=== PATIENT | female | born 1940 | race Caucasian/White ===

== ENCOUNTER 2019-06-03 20:48 | Inpatient (IN) ==
[2019-06-03 21:30] LABS: BASO# 0.03 X1000 (0.0-0.2); BASO% 0.2 % (0.0-0.8); EOS# 0.27 X1000 (0.0-0.7); EOS% 2.1 % (0.0-10.0); HEMATOCRIT 32.3 % (37.0-47.0); HEMOGLOBIN 10.4 g/dL (12.0-16.0); LYMPH# 1.32 X1000 (1.2-3.4); LYMPH% 10.4 % (20.5-51.1); MCH 29.2 PG (27-31); MCHC 32.2 g/dL (33-37); MCV 90.7 FL (81-99); MONO# 1.11 X1000 (0.11-0.59); MONO% 8.7 % (1.7-9.3); MPV 10.3 FL (7.4-10.4); NEUT% 78.6 % (42.2-75.2); PLT 264 X1000 (130-400); RBC 3.56 XMIL (4.2-5.4); RDW 14.9 % (11.5-14.5); WBC 12.73 X1000 (4.8-10.8)
[2019-06-03 22:03] LABS: ALB/GLOB RATIO 0.9; ALBUMIN 3.2 g/dL (3.5-5.0); CALCIUM 8.3 mg/dL (8.8-10.2); CREATININE 2.2 mg/dL (0.5-0.9); POTASSIUM 3.6 mmol/L (3.5-5.1); TOTAL BILIRUBIN 0.52 mg/dL (0.20-1.00); TOTAL PROTEIN 6.9 g/dL (6.3-8.3)
[2019-06-03] MEDS ORDERED: TYLENOL PO ONE (22:45)
[2019-06-03] MEDS ORDERED: TYLENOL ONE ×2 (22:51→22:54)
[2019-06-03] MEDS ORDERED: NS 1,000 ML IV ONE (22:52)
[2019-06-04 00:37] LABS: URINE SOURCE CLEAN CATCH
[2019-06-04 00:45] LABS: BILIRUBIN URINE NEGATIVE (NEGATIVE); BLOOD URINE SMALL (NEGATIVE); COLOR YELLOW; GLUCOSE URINE 300 mg/dL (NEGATIVE); KETONE URINE NEGATIVE (NEGATIVE); LEUKOCYTES URINE NEGATIVE (NEGATIVE); NITRITE URINE NEGATIVE (NEGATIVE); PH URINE 6.5; PROTEIN URINE 600 mg/dL (NEGATIVE); SP GRAVITY URINE 1.011; TURBIDITY URINE CLEAR (CLEAR); UR EPITHELIAL CELLS <10 /HPF (<10); URINE BACTERIA NEGATIVE /HPF; URINE RBC 20-40 /HPF (<10); URINE WBC <10 /HPF (<10); UROBILINOGEN URINE NORMAL (NORMAL)
[2019-06-04] MEDS ORDERED: ROCEPHIN 1 GM in NS 50 ML IV ONE (00:57)
--- NOTE | 2019-06-04 01:00 | PROVIDER DOCUMENTATION ---
This chart was entered by Shahrzad Hutson Scribe, acting as scribe for Darien Gregory DO. HPI-General Adult - General Chief Complaint: Fever Stated Complaint: POSS DEHYDRATION Time Seen by Provider: 06/03/19 22:22 Source: patient Allergies/Adverse Reactions: Patient Allergies Allergy/AdvReac Type Severity Reaction Status Date / Time amlodipine Allergy Unknown Verified 02/15/18 19:35 Iodinated Contrast Media Allergy Unknown Verified 02/15/18 19:35 [Iodinated Contrast- Oral and IV Dye] Latex, Natural Rubber Allergy Unknown Verified 02/15/18 19:35 Sulfa (Sulfonamide Allergy Unknown Verified 02/15/18 19:35 Antibiotics) sulfabenzamide Allergy Unknown Verified 02/15/18 19:35 Home Medications: Home Medication List Medication Instructions Recorded Confirmed Last Taken Type ATORVAstatin [Lipitor] 80 mg PO HS 02/15/18 02/15/18 Unknown History Allopurinol 100 mg PO DAILY 02/15/18 02/15/18 Unknown History Alprazolam 0.25 mg PO ORDERED PRN 02/15/18 02/15/18 Unknown History Anastrozole 1 mg PO DAILY 02/15/18 02/15/18 Unknown History Apixaban [Eliquis] 5 mg PO BID 02/15/18 02/15/18 Unknown History Aspirin 81 mg PO DAILY 02/15/18 02/15/18 Unknown History Carvedilol 12.5 mg PO BID 02/15/18 02/15/18 Unknown History CefDINIR [Omnicef] 300 mg PO BID 02/15/18 02/15/18 Unknown History Diltiazem C.d. [Cardizem Cd] 120 mg PO DAILY 02/15/18 02/15/18 Unknown History Furosemide 40 mg PO DAILY 02/15/18 02/15/18 Unknown History Gabapentin E.r. [Gralise] 300 mg PO TID 02/15/18 02/15/18 Unknown History Hydrocodone Bit/Acetaminophen 1 each PO Q6H PRN 02/15/18 02/15/18 Unknown History [Hydrocodon-Acetaminophen 5-325] Insulin Glargine [Lantus] 50 units SQ HS 02/15/18 02/15/18 Unknown History Insulin Lispro [Humalog] 14 units SQ TID AC 02/15/18 02/15/18 Unknown History Losartan [Cozaar] 50 mg PO DAILY 02/15/18 02/15/18 Unknown History Pantoprazole [Protonix] 40 mg PO DAILY 02/15/18 02/15/18 Unknown History Phenazopyridine HCl 200 mg PO TID 02/15/18 02/15/18 Unknown History Venlafaxine [Effexor] 75 mg PO DAILY 02/15/18 02/15/18 Unknown History Ciprofloxacin HCl [Cipro] 500 mg PO BID 7 Days #14 tablet 02/16/18 Unknown Rx - History of Present Illness -Gen Adult Nature of Presenting Problems: 79 yof c/o fever, malaise, decreased mental status, cough and nausea. pt family giving pedialyte and fluids. pt poss taken too much lasix. pt has hx of ckd, dm, chf and cva. pt has not fallen, no syncope and has slight fever. denies v/d, chills and cp. pt is visiting from [facility]. Location of Pain/Injury: reports: none Pain Radiation: reports: no radiation Timing: reports: still present Context/Activities at Onset: reports: none Review of Systems - Adult - REVIEW OF SYSTEMS - ADULT Constitutional: reports: see HPI, fever, other (malaise). denies: chills, night sweats Eyes: reports: no symptoms reported Ears, Nose, Mouth & Throat: reports: no symptoms reported Cardiovascular: reports: no symptoms reported. denies: chest pain, edema, orthopnea, syncope Respiratory: reports: see HPI, cough. denies: dyspnea on exertion, shortness of breath, wheezing Gastrointestinal: reports: see HPI, nausea. denies: diarrhea, vomiting Genitourinary: reports: no symptoms reported Musculoskeletal: reports: no symptoms reported Integumentary: reports: no symptoms reported Neurological: reports: see HPI, other (dec mental status). denies: dizziness/vertigo, slurred speech, syncope Psychiatric: reports: no symptoms reported Endocrine: reports: no symptoms reported Hematologic/Lymphatic: reports: no symptoms reported Allergic/Immunologic: reports: no symptoms reported All Other Systems: Reviewed and Negative Past History - Adult - PAST MEDICAL HISTORY-ADULT Review of Records: reports: Old Records Reviewed, Nursing Assessment Review, Medications Reviewed, Social history reviewed & non-contributory. Major Childhood Illnesses: reports: denies history Cardiovascular: reports: CAD, HTN Respiratory: reports: denies history Gastrointestinal: reports: denies history Obstetrical/Gynecological: reports: denies history Genitourinary: reports: denies history Musculoskeletal: reports: denies history Neurological: reports: CVA Endocrine/Immune: reports: Diabetes Other Conditions: reports: denies history - IMMUNIZATION STATUS Childhood Immunizations: See Nurse Assessment Flu Vaccine: See Nurse Assessment - FAMILY HISTORY Family History: reviewed, not pertinent - SOCIAL HISTORY Smoking: non-smoker Substance Use: none/never Physical Exam-General - PHYSICAL EXAM-ADULT Initial Vital Signs Reviewed: Yes - CONSTITUTIONAL General Appearance: appears well, no apparent distress, lethargic (mild), other (fever 100.7 at 2052). negative: alert, cachetic, obtunded, combative - EYES Eyes: PERRL/EOMI, pink conjunctivae - HEAD, EARS, NOSE, MOUTH & THROAT HENMT: normocephalic/atraumatic, moist mucous membranes, normal ENT inspection - NECK Neck: non-tender, full range of motion, supple, normal inspection - RESPIRATORY Respiratory: chest non-tender, normal breath sounds, no pleuratic chest pain, no respiratory distress, no accessory muscle use, crackles (at bases). negative: lungs clear, respiratory distress, decreased breath sounds, wheezing - CARDIOVASCULAR Cardiovascular: normal peripheral pulses, regular rate, rhythm, no edema, no gallop, no JVD, systolic murmur (1/6). negative: no murmur, bradycardia, tachycardia - GASTROINTESTINAL (ABDOMEN) Abdominal Exam: normal bowel sounds, non tender, soft, no organomegaly, no pulsatile mass. negative: rigid, rebound, tenderness - LYMPHATIC Lymphatic: no adenopathy - MUSCULOSKELETAL Back Exam: normal inspection, no CVA tenderness, no vertebral tenderness Extremity: normal range of motion, non-tender, normal inspection Peripheral Pulses: radial (R): 2+, radial (L): 2+ - SKIN Integumentary: normal color, normal turgor, warm/dry - NEUROLOGIC Neurologic: grossly normal, no motor/sensory deficits - PSYCHIATRIC Psych/Mental Status: negative: other (lethargy but can answer questions) Progress - PLAN OF CARE/RESULTS Progress/Plan/Lab Results: Vital Signs - 8 hr 06/03/19 20:52 Temperature 100.7 F H Pulse Rate 81 Respiratory Rate 18 Blood Pressure 178/74 O2 Sat by Pulse Oximetry 96 Laboratory Results - last 24 hr 06/03/19 06/03/19 06/03/19 21:07 21:08 21:08 WBC 12.73 H RBC 3.56 L Hgb 10.4 L Hct 32.3 L MCV 90.7 MCH 29.2 MCHC 32.2 L RDW Std Deviation 14.9 H Plt Count 264 MPV 10.3 Immature Gran % (Auto) 0.0 Neut % (Auto) 78.6 H Lymph % (Auto) 10.4 L [place] % (Auto) 8.7 Eos % (Auto) 2.1 Baso % (Auto) 0.2 Immature Gran # (Auto) 0.00 Neut # (Auto) 10.00 H Lymph # (Auto) 1.32 [place] # (Auto) 1.11 H Eos # (Auto) 0.27 Baso # (Auto) 0.03 Sodium 132 L Potassium 3.6 Chloride 95 L Carbon Dioxide 21 L Anion Gap 16 BUN 40 H Creatinine 2.2 H Estimated GFR/1.73 m2 22 BUN/Creatinine Ratio 18 Glucose 191 H POC Glucose 186 H D Calculated Osmolality 279 Calcium 8.3 L Total Bilirubin 0.52 AST 12 ALT 10 Alkaline Phosphatase 94 Total Protein 6.9 Albumin 3.2 L Globulin 3.7 Albumin/Globulin Ratio 0.9 Plasma Lactate 06/03/19 21:08 WBC RBC Hgb Hct MCV MCH MCHC RDW Std Deviation Plt Count MPV Immature Gran % (Auto) Neut % (Auto) Lymph % (Auto) [place] % (Auto) Eos % (Auto) Baso % (Auto) Immature Gran # (Auto) Neut # (Auto) Lymph # (Auto) [place] # (Auto) Eos # (Auto) Baso # (Auto) Sodium Potassium Chloride Carbon Dioxide Anion Gap BUN Creatinine Estimated GFR/1.73 m2 BUN/Creatinine Ratio Glucose POC Glucose Calculated Osmolality Calcium Total Bilirubin AST ALT Alkaline Phosphatase Total Protein Albumin Globulin Albumin/Globulin Ratio Plasma Lactate 0.7 Orders Category Date Time Status CBC WITH DIFF [HEME] Stat Lab 06/03/19 21:08 Completed COMPREHENSIVE METABOLIC PANEL [CHEM] Stat Lab 06/03/19 21:08 Completed LACTATE, PLASMA [CHEM] Stat Lab 06/03/19 21:08 Completed Result Diagrams: 06/03/19 21:08 06/03/19 21:08 - CONSULTS/PCP/HOSPITALIST Notification #1 *Consult/PCP/Hospitalist*: Dr. Cobian Time Discussed: 00:55 Consult Disposition: Will see in ED Departure - Departure Date of Disposition Decision: 06/04/19 Time of Disposition Decision: 00:58 DIAGNOSIS: Pneumonia Qualifiers: Pneumonia type: due to unspecified organism Laterality: right Lung location: lower lobe of lung Qualified Code(s): J18.1 - Lobar pneumonia, unspecified organism Altered mental status Qualifiers: Altered mental status type: somnolence Qualified Code(s): R40.0 - Somnolence Disposition: ADMITTED INPATIENT 09 Certified Medical Emergency: Emergent Condition: Stable Referrals and Follow-Ups: None,PCP [Primary Care Provider] - - Critical Care Note This patient required my direct & personal management of CC.: No Attestation - Physician/ ISAURO Attestation Patient care was provided by Advanced Practice Provider:: No The physician spent face to face time with patient:: Yes Advanced Practice Provider documentation review:: Supervising physician onsite and consulted in the evaluation and care of this patient. The physician did have a face to face encounter with the patient. This chart was documented by the indicated scribe, (Shahrzad Hutson Scribe) and accurately reflects the services I performed and decisions made by me, Darien Gregory DO, as attested by the provider's signature.
[2019-06-04] MEDS ORDERED: ZOFRAN IV ONE (01:24)
[2019-06-04 03:54] LABS: INR 1.38; PROTIME 17.2 Seconds (11.0-16.0)
[2019-06-04 03:55] LABS: HEMOGLOBIN A1C 6.8 % (4.8-6.0)
[2019-06-04 04:01] LABS: MAGNESIUM 1.9 mg/dL (1.5-2.7)
[2019-06-04] MEDS ORDERED: ZOFRAN IV PRN (04:25)
[2019-06-04] MEDS ORDERED: TYLENOL PO PRN (04:25)
[2019-06-04] MEDS ORDERED: NEURONTIN PO PRN (04:26)
[2019-06-04] MEDS ORDERED: ZITHROMAX 500 MG/NS 500 MG/250 ML IVPB IV SCH (05:00)
[2019-06-04 05:03] LABS: ALLEN TEST YES; BE -3.2 mmoll (-3.0-3.0); BLOOD TYPE ARTERIAL; HCO3-(ACT) 22.4 mmoll (20.0-26.0); O2HB 95.9 % (95.0-99.0); PCO2(98.6) 43 mmHg (35-45); PO2(98.6) 142 mmHg (60-100); SAMPLE BLOOD; SAO2 98.7 % (95.0-100.0); THB 11.7 g/dL (11.5-17.4); pH(98.6) 7.33 (7.35-7.45)
[2019-06-04 05:04] LABS: MODALITY CANNULA
[2019-06-04] MEDS: DUONEB (A & A) INH SCH ×6 (05:22→23:48)
[2019-06-04] MEDS: HUMULIN R SUBQ SCH ×4 (06:10→20:21)
[2019-06-04] MEDS: PROTONIX PO SCH (06:11)
--- NOTE | 2019-06-04 06:12 | EKG Report ---
Test Performed on : 06/04/2019 04:04:52 AM Test Reason : Left Shoulder Pain, Hx of CAD Blood Pressure : / mmHG Vent. Rate : 062 BPM Atrial Rate : 062 BPM P-R Int : 176 ms QRS Dur : 084 ms QT Int : 456 ms P-R-T Axes : 069 -04 104 degrees QTc Int : 462 ms Normal sinus rhythm. Left ventricular hypertrophy with repolarization abnormality Abnormal ECG When compared with ECG of 15-FEB-2018 19:25, Sinus rhythm. has replaced Junctional rhythm. Unconfirmed Result
--- NOTE | 2019-06-04 06:48 | HISTORY AND PHYSICAL ---
PRIMARY CARE PHYSICIAN: Dr. Pedro Rothman in [place], [place]. CHIEF COMPLAINT: Fever. HISTORY OF PRESENT ILLNESS: Mrs Luz is a 79-year-old female who does have a past medical history most notable for chronic kidney disease, diabetes mellitus, coronary artery disease status post stent placement and CABG x2, hyperlipidemia, asthma and vascular disease. The patient is here visiting from [place], [place]. She has been treated at our facility 1 time previously in the ER. The patient reports that she had been admitted to the hospital in March due to acute on chronic kidney disease complications. The patient denies any recent diagnosis of pneumonia. The patient as well as the patient's family at bedside do report that over the past 1 to 2 days, she has had fever, malaise, a wet sounding cough that is occasionally productive, nausea and indigestion. The patient's family also states that today her fever did begin to get higher, it got up to above 100 degrees and was 102 degrees upon arrival to the ER. They report that during the day today that she was altered and was not herself. She was very drowsy. They do report this has improved, at this time, since her fever has improved. They report that she has had nausea and has not been having a very good appetite and oral intake. She does take Lasix 40 mg p.o. daily and is instructed to take an additional 20 mg tablet based off what her weight is. They reported that they thought she may have been dehydrated and had possibly over done her Lasix a bit since she was not having good oral intake. The family reports they have been trying to give her some Pedialyte and fluids to accommodate for this. The patient is reporting occasional headaches. She had reported some dizziness as well. She reported some blurry vision, though this has since resolved. She has denied any chest pain, but was complaining of some left shoulder pain that she reported was a moderate pain when all her symptoms began to get worse today. Though she denied any chest pain, as previously mentioned. She denies any shortness of breath, though she was reporting nausea. She denied any abdominal pain. She denied any vomiting or diarrhea. The patient does take Eliquis and low-dose aspirin secondary to a history of stroke and vascular disease. She denied any hematochezia or melena. She denies any swelling in her extremities. The patient does have neuropathy and does have some decreased sensation and pain secondary to this, though she reports this has not worsened. The patient would occasionally drift off to sleep during my examination. She was easily arousable with verbal stimulation. Once awoken, she was alert and oriented to person, place, time, and situation. Also, her family states that she does not wear oxygen at home and does not wear BiPAP for CPAP at this time, though previously was wearing this and has had an order to have a sleep study performed, though she has not completed this as of yet. While I was in the room during my examination when the patient would drift off to sleep, her oxygen saturation would dip into the high 80s at times. Upon evaluation in the ER, she was noted to have fever of 100.7, though her family did report that in the ER this evening she did have a temperature at one point of 102 degrees. She does have some mild leukocytosis with white blood cell count of 12,730. BUN is 40, creatinine is 2.2 with a GFR 22. I did ask the patient if she knew what her baseline creatinine was given her history of kidney disease, she stated yes that her baseline creatinine is anywhere from 3.5 to 4.5. At this time, we have a creatinine of 2.2. She does have an ER record of previous creatinine in January 2017 of 2.6. This does appear to be actually improvement from her baseline creatinine. Given her symptoms in the ER, they did perform a chest x-ray and a head CT without contrast. The chest x- ray was noted to have right lower lobe pneumonia present. We are awaiting official radiology over- read as well. CT of the head did show some old lacunar infarcts bilaterally, though there was no evidence of acute hemorrhage or definite acute infarct, this is per Radiology. At this time, the patient will be placed inpatient admission for treatment of pneumonia. REVIEW OF SYSTEMS: A 14-point review of systems was conducted with the patient and all were negative, except for pertinent positives mentioned in the HPI. PAST MEDICAL HISTORY: 1. Chronic kidney disease with a reported baseline creatinine of 3.5 to 4.5, per the patient. 2. Insulin-dependent diabetes mellitus. 3. Coronary artery disease status post previous stent placement and coronary artery bypass graft x2. 4. Questionable history of congestive heart failure. 5. Previous history of a stroke approximately 5 years ago, for which the patient states that she does have some occasional residual deficit of balance problems. 6. Vascular disease. 7. History of gout. 8. Hyperlipidemia. 9. Peripheral neuropathy. PAST SURGICAL HISTORY: 1. Cholecystectomy. 2. Partial hysterectomy. 3. Appendectomy. 4. Right carpal tunnel surgery. 5. Left ankle surgery secondary to injury. 6. Coronary artery bypass graft x2. 7. Cardiac stent placement. 8. Reported angioplasty and stent placement for peripheral artery disease as well as an additional surgery, from what the patient describes, it sounds like she may have had renal artery stents placed as well. 9. History of carotid artery disease per the patient. SOCIAL HISTORY: The patient is a former smoker. She did smoke 1 pack per day for 20 years, though quit smoking in 1979. She has no known history of alcohol or illicit drug use. She is . Her and she both live in [place], [place]. They are here visiting family. FAMILY HISTORY: Positive for her Mother having a history of diabetes mellitus, stroke, and congestive heart failure. She does not have any siblings and does not know her Father. ALLERGIES: Patient has allergies to amlodipine, iodinated contrast media, latex, sulfa antibiotics, and sulfa drugs. HOME MEDICATIONS: 1. Allopurinol 100 mg p.o. daily. 2. Anastrozole 1 mg p.o. daily. 3. Eliquis 2.5 mg p.o. at bedtime. 4. Aspirin 81 mg p.o. daily. 5. Atorvastatin 80 mg p.o. at bedtime. 6. Coreg 6.25 mg p.o. b.i.d. 7. Furosemide 40 mg p.o. daily. 8. Gabapentin 300 mg p.o. t.i.d. 9. Lantus 70 units subcutaneously q.a.m. 10. Humalog sliding scale per protocol subcu t.i.d. before meals. 11. Protonix 40 mg p.o. daily. 12. Effexor 75 mg p.o. daily. DIAGNOSTIC DATA/LABORATORY RESULTS: White blood cell count is 12,730, hemoglobin 10.4, hematocrit 32.3, platelet count is 264,000. PT 17.2, INR 1.3, PTT is 47. Sodium 132, potassium 3.6, chloride 95, serum bicarb is 21, BUN 40, creatinine 2.2 with a GFR of 22, glucose 191, calcium 8.3, magnesium 1.9. Liver function tests within normal limits. CK 34. Troponin 0.017. ProBNP is 5094. Plasma lactate is 0.7. Arterial blood gases were obtained on nasal cannula at 2 L, pH was 7.33, pCO2 of 43, PO2 of 142, HCO3 was 22.4, base excess was -3.2 with O2 saturation of 98.7. Urinalysis was obtained via clean catch, was positive for protein, glucose and a small amount of blood. It was negative for ketones, nitrites, bilirubin, leukocytes, white blood cells, or bacteria. EKG showed normal sinus rhythm with left ventricular hypertrophy at a rate of 62 with a QTc of 462 msec. When compared to previous EKG in January 2018, there does not appear to be any acute changes noted. Chest x-ray did show a right lower lobe pneumonia. We are awaiting official Radiology over-read. CT of the head without contrast did show old lacunar infarcts bilaterally, there were no acute hemorrhage or definite acute infarcts seen. There were no masses identified and there is no hydrocephalus. There is no mass effect though there is marked mucosal thickening of the left maxillary sinus, this is per Radiology. Pending diagnostic studies at this time are blood cultures and sputum culture, and repeat cardiac enzymes. PHYSICAL EXAMINATION: VITAL SIGNS: Temperature 98.1 degrees, heart rate 65, respirations 12, blood pressure is 128/50, oxygen saturation is 96% on nasal cannula at 2 L. GENERAL: Mrs. Luz is a pleasant 79-year-old female, she was resting in the ER stretcher, she was in no acute distress. The patient did seem slightly drowsy during my examination and she did occasionally drift off to sleep at times, though she was easily arousable with verbal stimulation and, once woken, she was alert and oriented. HEENT: Head is atraumatic, normocephalic. Pupils are equal, round, reactive to light, were 3 mm bilaterally and brisk. Oral mucosa was moist. Oropharynx was clear. Bilateral tympanic membranes were pearly zhong color, did have positive light reflex. There was no erythema noted. NECK: Supple. Trachea midline. The patient did not have any JVD noted. There was no hepatojugular reflex present. Though upon auscultation of carotid arteries, no bruit were noted on the right, though on the left the patient did have a slight bruit present. The patient states this has been previously present and is not of new onset. CARDIOVASCULAR: Patient has S1, S2 present. No murmurs, gallops, rubs appreciated with a regular rate and rhythm. PULMONARY: Patient has symmetrical chest expansion bilaterally. Lung sounds in bilateral upper mcclure anteriorly and posteriorly were clear, though in bilateral mid lung mcclure and in lung bases, she was diminished. In the mid lung field area bilaterally, she did have some slight crackles noted as well. ABDOMEN: Soft, nondistended. The patient did report some very slight generalized tenderness upon palpation. Bowel sounds were present in all 4 quadrants, were normoactive. EXTREMITIES: No cyanosis or edema noted. Pulse, motor, and sensory were intact in all extremities. Radial and pedal pulses were 2+ bilaterally. INTEGUMENTARY: The patient's skin is pink, warm, and dry. NEUROLOGICAL: The patient is alert and oriented to person, place, time, and situation. She is able to move all extremities. She does have equal hand grasp and muscle strength bilaterally. She has no facial droop noted. No arm drift present. There are no focal neurological deficits noted at this time. ASSESSMENT AND PLAN: 1. A right lower lobe pneumonia. At this time, we have placed the patient on antibiotics of Rocephin and azithromycin. Blood cultures have been obtained. Sputum culture has been ordered. We will continue with aggressive pulmonary toilet with scheduled DuoNeb treatments, incentive spirometry and frequent encouragement to turn, cough and deep breathing. The patient on room air does have oxygen saturation that is in the 95 to 96 percent range, though when she does drift off to sleep her oxygen saturation at times does dip into the high 80s. The patient does have a reported history of wearing CPAP or BiPAP in the past, though does not presently wear this and was instructed to get a sleep study, which she has not had performed yet. We have placed her on supplemental oxygen with nasal cannula at 2 L. We will continue to monitor this closely. 2. Chronic kidney disease with reported baseline creatinine of 3.5 to 4.5 per the patient. At this time, her creatinine is 2.2. We do have 1 previous creatinine result in our medical record, which was 2.6 so, at this time, the patient does appear to be slightly improved from her baseline, though we will continue to monitor this closely. We will avoid nephrotoxic medications and renally dose medicines as necessary. 3. Diabetes mellitus. The patient normally does take Lantus and a lispro sliding scale, though given that she has had nausea and decreased oral intake, we will do pattern fingerstick blood sugars, place her on sliding scale low-dose protocol regular insulin, and she will be on a diabetic diet. 4. Coronary artery disease status post stent placement and coronary artery bypass graft x2. We will continue the patient's regularly prescribed cardiac medications as well as her aspirin. 5. History of cerebrovascular accident. We will continue her aspirin and Eliquis, which is what the patient reports that she takes this for. We will also continue her atorvastatin. 6. History of vascular disease. 7. Deep vein thrombosis prophylaxis. Will be provided with previously mentioned Eliquis. She has been placed on the medical floor with telemetry. She will have vital signs and neurological checks q.4 hours. We will do strict intake and output. She will be on a diabetic heart healthy diet. We will repeat a CBC, CMP, as well as a series of cardiac enzymes in the morning. Further orders and recommendations pending hospital course, diagnostic studies, and physician evaluation. Dictated by SEAN Carey for Saji Cobian MD cc: Saji Cobian MD
--- NOTE | 2019-06-04 07:16 | Diag Imaging Result Doc PS360 ---
EXAM: CHEST-2 VIEWS 06/03/2019 HISTORY: altered mental status TECHNIQUE: PA and lateral chest COMMENT: There is cardiomegaly. There are sternotomy wires. Considering differences in technique and inspiration there has been no significant change since 02/15/2018. IMPRESSION: Stable chest. Electronically signed by Oliver Vazquez 06/04/2019 7:14 AM
[2019-06-04 07:44] LABS: BASO# 0.03 X1000 (0.0-0.2); BASO% 0.3 % (0.0-0.8); EOS# 0.25 X1000 (0.0-0.7); EOS% 2.2 % (0.0-10.0); HEMATOCRIT 28.6 % (37.0-47.0); HEMOGLOBIN 9.1 g/dL (12.0-16.0); IMM GRAN# 0.02 X1000 (0.0-0.04); IMM GRAN% 0.2 % (0.0-0.5); LYMPH# 1.81 X1000 (1.2-3.4); LYMPH% 15.6 % (20.5-51.1); MCH 29.4 PG (27-31); MCHC 31.8 g/dL (33-37); MCV 92.6 FL (81-99); MONO% 8.6 % (1.7-9.3); MPV 10.4 FL (7.4-10.4); NEUT# 8.46 X1000 (1.4-6.5); NEUT% 73.1 % (42.2-75.2); PLT 207 X1000 (130-400); RBC 3.09 XMIL (4.2-5.4); RDW 14.9 % (11.5-14.5); WBC 11.57 X1000 (4.8-10.8)
[2019-06-04] MEDS: ZITHROMAX 500 MG/NS 500 MG/250 ML IVPB IV SCH (07:55)
--- NOTE | 2019-06-04 08:00 | Diag Imaging Result Doc PS360 ---
EXAM: CT HEAD W/O CONTRAST 06/03/2019 HISTORY: fever/cough TECHNIQUE: This exam was performed using automated exposure control, adjustment of mA or kV according to patient size, and/or use of iterative reconstruction technique. COMMENT: The current study is compared with the previous examination of 02/15/2019. There is opacification of the left maxillary sinus which was not previously present. There is generalized patchy ill-defined lucency in the white matter of both hemispheres including the anterior limbs of the internal capsules and anterior external capsules. There are lacunae present in the basal ganglia particularly on the right side. There is some patchy lucency in the caudate nuclei bilaterally and in both thalami. There is also encephalomalacia present in the left cerebellar hemisphere which was present previously. No evidence of bleed, mass effect, or abnormal extra-axial fluid collection is present. There are calcifications in the vertebral and internal carotid arteries. The calvarium is intact. Compared to the previous examination, there has been no appreciable change in the appearance the brain. IMPRESSION: Extensive chronic ischemic change. No definite evidence of acute abnormality intracranially. Left maxillary sinusitis. If clinically indicated, further evaluation with MRI may be desirable particularly in view of the extensive chronic changes. Electronically signed by Oliver Vazquez 06/04/2019 7:58 AM
[2019-06-04 08:13] LABS: ALBUMIN 2.5 g/dL (3.5-5.0); CREATININE 2.5 mg/dL (0.5-0.9); POTASSIUM 3.6 mmol/L (3.5-5.1); TOTAL BILIRUBIN 0.27 mg/dL (0.20-1.00); TOTAL PROTEIN 5.1 g/dL (6.3-8.3)
[2019-06-04] MEDS: COREG PO SCH ×3 (08:31→20:22)
[2019-06-04] MEDS: ASPIRIN PO SCH (08:31)
[2019-06-04] MEDS: EFFEXOR PO SCH (08:31)
[2019-06-04] MEDS: ZYLOPRIM PO SCH (08:37)
[2019-06-04] MEDS ORDERED: NS 1,000 ML IV SCH (11:45)
--- NOTE | 2019-06-04 12:22 | PROGRESS NOTE ---
DATE: 06/04/2019 SUBJECTIVE: This morning, Ms. Luz refers to be feeling a little bit more stronger than before. According to the daughter who was at the bedside at the time of the encounter, Ms. Luz has been in and out of the hospital in [place] multiple times. Was recently discharged, I think in March. She came to visit the daughter last week. According to the daughter, Ms. Luz takes very rigid control on her weight with Lasix because of what she has been recommended. Now, the last couple days, she has been taking too much of it because her weight has been very high. She was brought in yesterday because she became extremely lethargic and not responding. The patient did show some slight improvement after she was given oral rehydration salts. OBJECTIVE: Current Vital Signs: Blood pressure is 142/55, pulse of 60, respirations are 20, temperature is 97.8 degrees, patient is saturating 98% on room air. General Examination: Ms. Luz is a 79-year-old, female. She is in bed. She is not in any distress. HEENT: Mucosa is pink and dry. Anicteric. Acyanotic. Neck: Supple. Chest: Good air entry bilaterally. A few crackles in the posterior lung mcclure. Cardiovascular: Regular rate and rhythm. There is an old sternotomy scar. Abdomen: Soft. Distended but nontender. There is an old surgical scar in the infraumbilical region. There is also a right paramedial scar from previous gallbladder and appendix surgeries. HVAC TECHNICIAN RESIDENTIAL: The patient is slightly drowsy but easily arousable. Laboratory Data: WBC is 11.57, hemoglobin is 9.1, platelet count of 207,000. Chemistry is also reviewed. Creatinine is 2.5., BUN is 43, glucose of 126. Diagnostic Studies: A chest x-ray shows stable, no changes. A CAT scan did show left maxillary sinusitis. ASSESSMENT: 1. Altered mental status on presentation, presumably a combination of metabolic and infectious encephalopathies. The patient's mentation seems to be doing better. 2. Clinical volume depletion, presumably due to overdiuresis. The patient still looks slightly dry. We are going to continue with intravenous fluids. 3. Chronic kidney disease stage 4, noted. The patient is not on any dialysis. 4. Diabetes mellitus. 5. Coronary artery disease, status post coronary artery bypass graft twice. 6. Left maxillary sinusitis. The patient is on an antimicrobial which will cover this as well. 7. One time episode of mild fever. Infectious etiologies yet to be ruled out. Blood cultures are pending. Patient is on antibiotics. We will get a CAT scan of the lungs since the chest x-ray was completely unremarkable, to rule out any underlying pneumonia. We will also get a flu swab test to rule out the flu. cc: Inder Jones MD MTDD
--- NOTE | 2019-06-04 20:25 | Diag Imaging Result Doc PS360 ---
EXAM: CT THORAX W/O CONTRAST HISTORY: SOB TECHNIQUE: CT chest without contrast COMPARISON: None. FINDINGS: There are sternal wires. The heart is mildly enlarged. Prominent atherosclerosis. No aortic aneurysm. Tiny pleural effusions. Moderate sized mediastinal and hilar nodes. There are scattered nodular infiltrates most pronounced in the right upper lobe measuring up to 2 cm. There is central vascular distention. IMPRESSION: 1.Scattered nodular infiltrates with moderately prominent mediastinal nodes 2.Cardiomegaly with central vascular distention and small effusions This exam was performed using automated exposure control, adjustment of mA or kV according to patient size, and/or use of iterative reconstruction technique. Electronically signed by Andrea Rodríguez 06/04/2019 8:23 PM
[2019-06-04] MEDS ORDERED: LIPITOR PO SCH (21:00)
[2019-06-04] MEDS ORDERED: ELIQUIS PO SCH (21:00)
[2019-06-05] MEDS ORDERED: ROCEPHIN 1 GM in NS 50 ML IV SCH (01:00)
[2019-06-05] MEDS ORDERED: TESSALON PO PRN (04:58)
[2019-06-05] MEDS: DUONEB (A & A) INH SCH ×2 (05:31→07:27)
[2019-06-05] MEDS: HUMULIN R SUBQ SCH ×2 (06:22→12:05)
[2019-06-05] MEDS: PROTONIX PO SCH (06:22)
[2019-06-05 07:17] LABS: HEMATOCRIT 28.8 % (37.0-47.0); HEMOGLOBIN 9.2 g/dL (12.0-16.0); MCHC 31.9 g/dL (33-37); MCV 93.8 FL (81-99); MPV 10.2 FL (7.4-10.4); RBC 3.07 XMIL (4.2-5.4); RDW 14.9 % (11.5-14.5); WBC 9.74 X1000 (4.8-10.8)
[2019-06-05 07:47] LABS: ALBUMIN 2.9 g/dL (3.5-5.0); CALCIUM 8.5 mg/dL (8.8-10.2); CREATININE 3.2 mg/dL (0.5-0.9); MAGNESIUM 2.2 mg/dL (1.5-2.7); POTASSIUM 3.9 mmol/L (3.5-5.1)
[2019-06-05 07:54] VITALS: BP 181/69
[2019-06-05] MEDS: ZITHROMAX 500 MG/NS 500 MG/250 ML IVPB IV SCH (08:05)
[2019-06-05] MEDS: ASPIRIN PO SCH (08:13)
[2019-06-05] MEDS: ZYLOPRIM PO SCH (08:13)
[2019-06-05] MEDS: EFFEXOR PO SCH (08:13)
[2019-06-05] MEDS: COREG PO SCH (08:13)
[2019-06-05] MEDS ORDERED: LASIX PO SCH (09:00)
[2019-06-05] MEDS ORDERED: LACTULOSE PO ONE (09:31)
--- NOTE | 2019-06-06 13:14 | DISCHARGE SUMMARY ---
ADMISSION DATE: 06/04/2019 DISCHARGE DATE: 06/05/2019 DISPOSITION: Home. FOLLOW-UP: Medical Staff at [place]. CONSULTATION DURING ADMISSION: None. IMAGING STUDIES OF SIGNIFICANCE: 1. A CT scan of the head done on 06/04/2019 shows extensive chronic ischemic change. No definite evidence of acute abnormality. There is a left maxillary sinusitis. 2. A chest x-ray was stable. A CT scan of the chest shows scattered nodular infiltrates with moderately prominent mediastinal nodules, cardiomegaly with central venous distention, and effusion. MICROBIOLOGY DATA OF SIGNIFICANCE: Blood cultures were unremarkable at the time of the discharge. The influenza was negative. ADMISSION DIAGNOSES: 1. Right lower lobe pneumonia. 2. Chronic kidney disease. 3. Coronary artery disease status post stents and bypass surgery. 4. History of cerebrovascular accident. DIAGNOSES AT TIME OF DISCHARGE: 1. Altered mental status on presentation secondary to global encephalopathy. Etiologies include a combination of metabolic and infectious encephalopathy. 2. Clinical volume depletion improved. 3. Chronic kidney disease stage 4. 4. Diabetes mellitus. 5. Coronary artery disease status post stents and bypass surgery twice. 6. Left maxillary sinusitis. 7. Constipation. 8. Diabetes mellitus with presenting A1c of 6.8. 9. 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 10. Extensive microvascular ischemic changes on CAT scan. 11. Carotid stenosis more critical on the right where I was told she had about 80 to 90 percent stenosis and the left is about 60 to 70. We are still pending the official report on . The patient has been advised to follow up with her Team in [place] in [place]. DISCHARGE MEDICATIONS: 1. Allopurinol 100 mg p.o. daily. 2. Anastrozole 1 mg p.o. daily. 3. Aspirin 81 mg p.o. daily. 4. Atorvastatin 800 mg p.o. at bedtime. 5. Furosemide 40 mg p.o. daily. 6. Lantus 70 units p.o. every morning. 7. Sliding scale insulin. 8. Pantoprazole 40 mg p.o. daily. 9. Effexor 75 mg p.o. daily. 10.200 mg p.o. 3 times per day. 11. Eliquis 2.5 mg p.o. at bedtime. 12. Carvedilol 6.25 b.i.d. 13. Gabapentin 300 mg 3 times per day. 14. Hydralazine 225 mg 3 times per day. 15. Omnicef 300 mg p.o. b.i.d. PRESENTING COMPLAINT: Fever. HISTORY OF PRESENTING COMPLAINT: Ms. Luz is a 79-year-old female who is extremely vasculopathic, coronary artery disease status post CABG 2 times, and after that stent placement, diabetes mellitus and CKD. She has an established medical team at [place], [place]. She came to visit a family member here, and both she and her got sick with some generalized weakness, some stuffiness in the nose and cough. She said she was running some temperature at home upon presentation so she came to the emergency room for evaluation. At the time of admission, she had she did have a temperature of 100.7. She was admitted to the medical floor for further care. HOSPITAL COURSE: Ms. Luz was admitted to the medical floor. She was started on broad- spectrum IV antibiotics. She was also found to be slightly dry so she was started on IV hydration. During the hospital course, she refers to be feeling a lot better. Of note, Ms. Luz was taking a little bit too much of her Lasix because she thought she had put on weight, and as a result of that she was just not drinking enough and was peeing a lot. She got dry, came in, and she was evaluated and was fluid resuscitated. She was also started on IV antibiotics for possible pneumonia. A CT scan did show sinusitis. During the hospital course, she also had a carotid Doppler ultrasound which came back remarkably abnormal. I have discussed the findings with her, and with the family members. They all including the daughter and the , that they would prefer to look about it at [place]. This morning Ms. Luz referred to be doing a whole lot better. No fever. She feels stronger. I think she has now been well hydrated, and she is euvolemic. We will start her back on her regular medications. She has been advised to maintain adequate oral hydration and follow up with her primary care doctors, and her team in [place], [place]. As I said, I have discussed the findings of the preliminary report of the carotid ultrasound with her and the family. All the discharge instructions have been discussed with her and she voiced understanding. was also at the bedside at the time of this encounter. This morning her vitals, blood pressure is 144/54, pulse of 71, respiration is 18, temperature 98.2 degrees. Patient was saturating 93% on room air. Clinically stable for discharge. TIME SPENT FOR DISCHARGE: 35 minutes. cc: MD CHRIS Michaels
--- NOTE | 2019-06-07 14:55 | Carotid Study ---
DATE: 06/04/2019 REFERRING PRACTITIONER: Maame Ghosh. REFERRING PHYSICIAN: Dr. Cadena EGGS INSPECTOR: Urvashi. INDICATION: History of stroke and left carotid bruit. FINDINGS: There is an apparent soft plaque in the mid right common carotid artery, and then irregular calcific plaque at the right carotid bulb extending into the proximal and mid internal carotid artery. This does cause turbulent flow and elevated velocities in the internal carotid artery and external carotid artery. On the left side, there is atherosclerotic irregular plaque throughout the common carotid artery, then irregular calcific plaque at the left carotid bulb, proximal and mid internal carotid artery, which does again cause turbulent flow and elevated velocities in the internal carotid artery and external carotid artery. Percent stenosis is 80% to 99% on the right, 60% to 79% on the left. There is antegrade vertebral flow bilaterally. INTERPRETATION: Bilateral plaque disease as described above, producing a critical stenosis on the right, and a severe stenosis on the left, both of which are approaching hemodynamic significance. The right side certainly appears worse. There are no prior studies for comparison. cc: Ac Cadena MD
== END 2019-06-05 13:40 | disposition home health service (06) | DRG 640 ==
LOC: ED 20:48 → SUATTDRO 06-04 02:17 → 3N 06-04 02:17
PROVIDERS: ATTEND Internal Medicine